=== PATIENT | male | born 1980 | race Caucasian/White ===

== ENCOUNTER 2020-03-23 10:11 | Emergency (ER) | payer MEDICAID ==
[~2020-03-23] VITALS: Ht 165.1 cm; Wt 66.9 kg
[2020-03-23 11:08] VITALS: BP 122/67
[2020-03-23] MEDS ORDERED: HYDROcodone/acetaminophen 10/325mg tab PO ONE (11:40)
[2020-03-23] MEDS ORDERED: LIDOcaine 5% patch TP STA (12:13)
[2020-03-23] MEDS ORDERED: LIDO1ADH TOP (12:27)
== END 2020-03-23 12:56 | disposition home or self-care (01) ==
LOC: ER 10:11
DX: S22.42XD Multiple fractures of ribs, left side, subsequent encounter for fracture with routine healing (principal); W19.XXXD Unspecified fall, subsequent encounter; Z88.6 Allergy status to analgesic agent
CPT/HCPCS: 71045; 99283